=== PATIENT | male | born 1970 | race American Indian/Alaskan Native ===

== ENCOUNTER 2016-11-15 06:39 | Day surgery (SDC) | payer OTHER ==
[~2016-11-15 06:39] MED LIST: MARCAINE-EPI 0.25%-1:200,000 INFILTRATI ONE
[2016-11-15] MEDS ORDERED: ANCEF/STERILE WATER 2 GM/20 ML IV NR (07:00)
--- NOTE | 2016-11-15 07:41 | Anesthesia Consultation ---
Anesthesia Consult and Med Hx Date of service: 11/15/16 - Airway Anesthetic Teeth Evaluation: Good ROM Head & Neck: Adequate Mental/Hyoid Distance: Adequate Mallampati Class: Class II Intubation Access Assessment: Probably Good - Pulmonary Exam CTA: Yes - Cardiac Exam Cardiac Exam: RRR - Pre-Operative Health Status ASA Pre-Surgery Classification: ASA2 Proposed Anesthetic Plan: General - Pre-Anesthesia Comment Pre-Anesthesia Comments: combative wake up. thalassemia trait. LROM arms due to excessive scarring in axilla. Arthiritis, pain in shoulders - Cardiovascular System Hx Hypertension: Yes (X 11 YRS) Hx Cardia Arrhythmia: Yes (hx Afib ) - Hematic Hx Anemia: Yes
--- NOTE | 2016-11-15 07:43 | Anesthesia Day of Surgery ---
Anesthesia Day of Surgery - Day of Surgery Patient Examined: Yes Patient H&P Reviewed: Yes Patient is NPO: Yes
[2016-11-15] MEDS ORDERED: NACL BACTERIOSTATIC INFILTRATI ONE (07:46)
[2016-11-15] MEDS ORDERED: SUBLIMAZE ONE (07:57)
[2016-11-15] MEDS ORDERED: XYLOCAINE MPF 2% ONE (07:57)
[2016-11-15] MEDS ORDERED: LACTATED RINGERS 1,000 ML IV SCH (08:00)
[2016-11-15] MEDS ORDERED: VERSED IV NR (08:00)
[2016-11-15] MEDS ORDERED: PEPCID PO NR (08:00)
[2016-11-15] MEDS ORDERED: DIPRIVAN 10 MG/ML IV ONE ×2 (08:00→09:12)
[2016-11-15] MEDS ORDERED: MARCAINE-EPI 0.25%-1:200,000 INFILTRATI ONE ×3 (08:13→09:10)
[2016-11-15 08:22] LABS: Basophils % (Auto) 0.5 % (0.0-1.8); Eosinophils % (Auto) 1.9 % (0.0-4.3); Hematocrit 32.4 % (35.5-45.6); Mean Corpuscular HGB Conc 31 % (32-34); Platelet Count 290 K/mm3 (140-440); Red Blood Count 5.12 M/mm3 (3.65-5.03); Red Cell Distribution Width 19.5 % (13.2-15.2)
[2016-11-15 08:24] LABS: Mean Corpuscular Hemoglobin 20 pg (28-32); Mean Corpuscular Volume 63 fl (84-94)
[2016-11-15] MEDS ORDERED: DECADRON ONE (10:14)
[2016-11-15] MEDS ORDERED: ZOFRAN ONE (10:14)
[2016-11-15] MEDS ORDERED: ZOFRAN IV PRN (10:39)
[2016-11-15] MEDS: DILAUDID IV PRN ×2 (10:40→10:50)
--- NOTE | 2016-11-15 10:40 | Post Anesthesia Evaluation ---
- Post Anesthesia Evaluation Patient Participated: Yes Airway Patent: Yes Stable Respiratory Function: Yes Nausea/Vomiting: No Temp > 96.8F: Yes Pain Manageable: Yes Adequeate Hydration: Yes Anesthesia Complications: No Block Receding Appropriately: Not Applicable Patient on Ventilator: No
--- NOTE | 2016-11-15 10:56 | Operative Report ---
SERVICE: Plastic Surgery. PREOPERATIVE DIAGNOSIS: Keloid of left face. POSTOPERATIVE DIAGNOSIS: Keloid of left face. PROCEDURE: 1. Excision, benign neoplasm of left face greater than 4 cm. 2. Adjacent tissue transfer of left face greater than 60 square cm. SURGEON: Carlos Silva MD DESCRIPTION OF PROCEDURE: The patient was brought to the operating room and placed on the table in supine position. Following administration of general anesthesia, the face was prepped with Betadine solution, draped in usual sterile manner. Local anesthesia consisting of 0.25% Marcaine with epinephrine was infiltrated into the subcutaneous plane. Circumferential excision of the mass was performed followed by extensive undermining of superior and inferior flaps. Rotation advancement across the defect for closure without undue tension was performed using interrupted and running subcuticular 2-0 Monocryl sutures followed by Mastisol, Steri-Strips and sterile dressing. Closure was performed over a 7 mm TLS drain. The patient tolerated the procedure well and returned to recovery room in stable condition and will be going to receive radiation therapy today. JOB# [id number] FTW/ROSE
[2016-11-15 11:54] VITALS: BP 136/80
--- NOTE | 2016-11-15 16:50 | Discharge Summary ---
Short Stay Discharge Plan Activity: other (AVOID TURNING HEAD TO THE RIGHT AND EXTENDING THE NECK) Weight Bearing Status: Full Weight Bearing Diet: regular Wound: remove dressing (72HRS) Additional Instructions: DR. SANCHEZ WANTS PATIENT TO HAVE RADIATION TODAY WITH DR. MARIO NI. TAKE MR. MATHIS TO DR. MARIO NI'S OFFICE IMMEDIATELY AFTER LEAVING [facility]- RADIOTHERAPY [place] [id number] CHANGE TLS DRAIN TWICE A DAY. TLS DRAIN [facility] INSTRUCTIONS (CD 0032) GIVEN, ALONG WITH EXTRA TUBES. Follow up with: PRIMARY CARE, [Primary Care Provider] - 6 Weeks KAROL SANCHEZ JR, MD [Staff Physician] - 7 Days Forms: Outpatient Surgery DC Inst.
--- NOTE | 2016-11-15 16:54 | Short Stay Summary ---
Short Stay Documentation Date of service: 11/15/16 - Allergies and Medications Current Medications: Allergies latex Allergy (Verified 11/10/16 17:20) Hives Sulfa (Sulfonamide Antibiotics) Allergy (Verified 11/10/16 17:20) Itching Home Medications Medication Instructions Recorded Confirmed Last Taken Type Amlodipine Besylate [Norvasc] 2.5 mg PO DAILY 11/10/16 11/10/16 11/15/16 05:30 History Olmesartan/Hydrochlorothiazide 1 tab PO DAILY 11/10/16 11/10/16 11/15/16 05:30 History [Benicar HCT 40-25 mg] Remicade 500 mg IV Q6W 11/10/16 11/15/16 11/04/16 History Sotalol [Betapace] 80 mg PO DAILY 11/10/16 11/10/16 11/15/16 05:30 History - Brief post op/procedure progress note Date of procedure: 11/15/16 Pre-op diagnosis: KELOID OF LT FACE Post-op diagnosis: same Procedure: EXCISION OF BENIGN NEOPLASM OF LT FACE >4CM ADJ TISSUE TRANSFER ~75CM2 Anesthesia: GETA Surgeon: KAROL SANCHEZ JR Specimen disposition: to lab Condition: stable - Disposition Condition at discharge: Good Disposition: DC-01 TO HOME OR SELFCARE Short Stay Discharge Plan Additional Instructions: DR. SANCHEZ WANTS PATIENT TO HAVE RADIATION TODAY WITH DR. MARIO NI. TAKE MR. MATHIS TO DR. MARIO NI'S OFFICE IMMEDIATELY AFTER LEAVING [facility] RADIOTHERAPY [place] [id number] CHANGE TLS DRAIN TWICE A DAY. TLS DRAIN [facility] INSTRUCTIONS (CD 0032) GIVEN, ALONG WITH EXTRA TUBES. Follow up with: KAROL SANCHEZ JR, MD [Staff Physician] - 7 Days PRIMARY CARE, [Primary Care Provider] - 6 Weeks Forms: Outpatient Surgery DC Inst.
== END 2016-11-15 12:02 | disposition home or self-care (01) ==
LOC: OR 06:39
PROVIDERS: ATTEND Plastic Surgery
DX: L91.0 Hypertrophic scar (principal); I10 Essential (primary) hypertension; D64.9 Anemia, unspecified; I48.91 Unspecified atrial fibrillation; Z88.2 Allergy status to sulfonamides; Z91.040 Latex allergy status; Z79.899 Other long term (current) drug therapy; Z98.890 Other specified postprocedural states
CPT/HCPCS: 14301; 14302; 36415; 84132; 85025; 88307; J0690; J1100; J1170; J2250; J2405; J2704; J3010; J7120; 88305